=== PATIENT | male | born 2000 | race Caucasian/White ===

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

== ENCOUNTER 2020-02-16 13:49 | Inpatient (IN) ==
[2020-02-16 14:41] LABS: Urine Appearance Clear; Urine Bilirubin Negative (Negative); Urine Blood Negative (Negative); Urine Color Yellow; Urine Glucose Negative (Negative); Urine Ketones Negative (Negative); Urine Nitrite Negative (Negative); Urine Protein Negative (Negative); Urine Specific Gravity 1.023 (1.010-1.030); Urine Urobilinogen Negative (Negative)
[2020-02-16 15:06] LABS: ALT 19 U/L (7-52); Albumin 4.6 g/dL (3.2-5.2); Albumin/Globulin Ratio 1.8 (1-3); Alkaline Phosphatase 71 U/L (34-104); Blood Urea Nitrogen 10 mg/dL (6-24); CO2 Carbon Dioxide 22 mmol/L (22-32); Calcium 9.2 mg/dL (8.6-10.3); Chloride 107 mmol/L (101-111); EGFR African American 127.3 (>60); EGFR Non-African American 105.2 (>60); Globulin 2.6 g/dL (2-4); Glucose 101 mg/dL (70-100); Sodium 136 mmol/L (135-145); Total Protein 7.2 g/dL (6.4-8.9)
[2020-02-16 15:14] LABS: Urine Benzodiazepine Screen None Detected (None Detect); Urine Cannabinoids Screen Presumptive Positive (None Detect); Urine Opiates Screen None Detected (None Detect)
[2020-02-16 15:17] LABS: Anion Gap 7 mmol/L (2-11)
[2020-02-16 16:04] LABS: Acetaminophen < 15 mcg/mL; Alcohol, S < 10 mg/dL (<10); TSH Ultra Thyroid Stim Horm 2.75 mcIU/mL (0.34-5.60)
[2020-02-16 16:07] LABS: Salicylate < 2.50 mg/dL (<30)
[2020-02-16] MEDS ORDERED: Al Hydrox/Mg Hydrox/Simet LIQ 30 ML UDC PO PRN (19:20)
[2020-02-16] MEDS: Nicotine GUM 2MG FRUIT FLAVOR PO PRN (19:41)
[2020-02-17 07:28] LABS: ABS Basophils 0.1 10^3/ul (0-0.2); ABS Eosinophils 0.1 10^3/ul (0-0.6); ABS Lymphocytes 2.6 10^3/ul (1.0-4.8); ABS Monocytes 0.8 10^3/ul (0-0.8); ABS Neutrophils 5.1 10^3/ul (1.5-7.7); Eosinophil % 1.7 %; Hematocrit 43 % (42-52); Hemoglobin 15.2 g/dL (14.0-18.0); Lymphocyte % 29.8 %; Mean Corpuscular HGB Conc 35 g/dL (31-36); Mean Corpuscular Hemoglobin 32 pg (27-31); Mean Corpuscular Volume 93 fL (80-94); Mean Platelet Volume 7.3 fL (7.4-10.4); Platelet Count 291 10^3/uL (150-450); Red Blood Count 4.67 10^6 /uL (4.18-5.48); Red Cell Distribution Width 13 % (10-15); White Blood Count 8.7 10^3/uL (3.5-10.8)
[2020-02-17] MEDS: Nicotine GUM 2MG FRUIT FLAVOR PO PRN ×4 (09:10→20:43)
[2020-02-17] MEDS: Nicotine PATCH 14 MG/24 HR PATCH TRANSDERM SCH (09:10)
[2020-02-17] MEDS: Vitamin THERAPEUTIC TAB PO SCH (09:10)
[2020-02-17 12:53] LABS: BUN/Creatinine Ratio 9.6 (8-20); EGFR African American 122.6 (>60); EGFR Non-African American 101.3 (>60)
[2020-02-18 08:14] LABS: HDL Cholesterol 42.8 mg/dL
[2020-02-18] MEDS: Nicotine GUM 2MG FRUIT FLAVOR PO PRN ×3 (08:22→17:12)
[2020-02-18] MEDS: Nicotine PATCH 14 MG/24 HR PATCH TRANSDERM SCH (08:42)
[2020-02-18] MEDS: Vitamin THERAPEUTIC TAB PO SCH (08:42)
[2020-02-19] MEDS: Nicotine GUM 2MG FRUIT FLAVOR PO PRN ×3 (08:06→17:21)
[2020-02-19] MEDS: Vitamin THERAPEUTIC TAB PO SCH (08:30)
[2020-02-19] MEDS: Nicotine PATCH 14 MG/24 HR PATCH TRANSDERM SCH (08:30)
[2020-02-20] MEDS: Nicotine PATCH 14 MG/24 HR PATCH TRANSDERM SCH (07:57)
[2020-02-20] MEDS: Vitamin THERAPEUTIC TAB PO SCH (07:57)
[2020-02-20] MEDS: Nicotine GUM 2MG FRUIT FLAVOR PO PRN ×2 (07:58→12:08)
[2020-02-20 09:25] VITALS: BP 136/83
[2020-02-20 11:51] LABS: Chlamydia trachomatis NAA Negative (Negative); Neisseria gonorrhoeae (GC) NAA Negative (Negative)
== END 2020-02-20 14:00 | disposition home or self-care (01) | DRG 750 ==
LOC: ED 13:49 → BSU 18:35
PROVIDERS: ADMIT Psychiatry & Neurology Psychiatry; ATTEND Psychiatry & Neurology Psychiatry